=== PATIENT | female | born 1990 | race Caucasian/White ===

== ENCOUNTER 2018-02-10 08:12 | Emergency (ER) | payer BC ==
[~2018-02-10] VITALS: Ht 167.6 cm; Wt 82.7 kg
[~2018-02-10 08:12] MED LIST: AMOX TR-K CLV1 EAC4 PO; AMOXICILLIN875 MG PO; GLUCOPHAGE500 MG PO; HYDROCODON-ACE1 EAC7 PO; INDERAL80 M1 PO; LANTUS 3 M100 UNITS1 SC; NOVOLIN,HU100 UNITS1 SC; NOVOLOG MI100 UNIT/2; PROMETHAZINE HC25 M1 PO; PROPYLTHIOURACI50 M1 PO; TAPAZOLE5 MG PO
[2018-02-10 09:14] LABS: APPEARANCE CLEAR ((CLEAR)); BILIRUBIN NEGATIVE; BLOOD NEGATIVE; COLOR YELLOW ((YELLOW)); GLUCOSE (STRIP) 150; KETONES NEGATIVE; LEUKOCYTES NEGATIVE; NITRITE NEGATIVE; PROTEIN (STRIP) NEGATIVE; SPECIFIC GRAVITY 1.026 (1.000-1.030); UCUL ADDED? NO
[2018-02-10 09:16] LABS: HEMATOCRIT 34.3 % (36.0-46.0); HEMOGLOBIN 10.8 G/DL (11.9-15.5); MCHC 31.5 G/DL (30.0-36.0); MCV 79.4 FL (83-99); PLATELET COUNT 325 K/uL (156-360); RBC DIS.WIDTH-CV 15.9 % (11.8-14.6); RED BLOOD COUNT 4.32 M/uL (3.80-5.20); WHITE BLOOD COUNT 9.1 K/uL (4.1-10.2)
[2018-02-10 09:29] LABS: CHLORIDE 108 mEq/L (99-109); POTASSIUM 4.1 mEq/L (3.7-5.4); SODIUM 141 mEq/L (136-147)
[2018-02-10 09:30] LABS: GLUCOSE 126 mg/dL (70-99)
[2018-02-10 09:34] LABS: CREATININE 0.8 mg/dL (0.6-1.3); GFR ESTIMATE (CALCULATED) > 59 mL/min/
[2018-02-10 09:35] LABS: UREA NITROGEN (BUN) 13 mg/dL (9-23)
[2018-02-10 09:42] LABS: QUANTITATIVE HCG < 4.0 MIU/ML
[2018-02-10] MEDS ORDERED: NORCO 5/3251 TABLET PO (10:33)
[2018-02-10] MEDS ORDERED: ROBAXIN750 MG PO (10:33)
[2018-02-10] MEDS ORDERED: MOBIC7.5 MG PO (10:33)
[2018-02-10 10:47] VITALS: BP 107/77
== END 2018-02-10 10:48 | disposition home or self-care (01) ==
LOC: EME 08:12
PROVIDERS: Nurse Practitioner Family
DX: M54.5 Low back pain (principal); M54.16 Radiculopathy, lumbar region; E10.9 Type 1 diabetes mellitus without complications; Z79.4 Long term (current) use of insulin; K59.00 Constipation, unspecified; D50.9 Iron deficiency anemia, unspecified
CPT/HCPCS: 72100; 80048; 81003; 84702; 85027; 99281; 99284; J1885